=== PATIENT | male | born 1965 | race Caucasian/White ===

== ENCOUNTER 2017-08-01 17:01 | Emergency (ER) | payer OTHER ==
[2017-08-01] MEDS ORDERED: IBUPROFEN 600 MG TAB PO ONE (17:42)
[2017-08-01] MEDS ORDERED: ACETAMINOPHEN 500 MG TAB PO ONE (17:42)
[2017-08-01] MEDS ORDERED: DEXAMETHASONE 4 MG TAB PO ONE (18:25)
[2017-08-01] MEDS ORDERED: KETOROLAC 30 MG/1 ML SDV IM ONE (18:26)
--- NOTE | 2017-08-01 18:29 | EDPHY ---
H & P Stated Complaint: Body aches,sore throat,fever today;seen at ,neg strep Time Seen by Provider: 08/01/17 18:26 HPI/ROS: HPI: This is a 52-year-old male presents with Chief Complaint:Body aches,sore throat,fever today;seen at ,neg strep Location: Throat Quality: Sore Duration: Since this morning approximately 5-8 hours Signs and Symptoms:+ fever, + body aches, + dry cough, no wheezing, no abdominal pain, no chest pain, no headache, no neck stiffness, difficulty swallowing Timing: Sudden Severity: Moderate Context: Patient reports that he did not and received his influenza vaccine this year and woke up this morning with a severe sore throat that is constant and moderate in nature. He reports that it hurts to swallow but he has been able to drink fluids. He noted an elevated temperature around noon today. He went to the urgent care and they did a rapid strep and was negative prescribed oral viscous lidocaine and has given him no relief. tylenol/motrin taken @ 1745 Modifying Factors: See above Comment: ROS: see HPI Constitutional: No fever, no chills, no weight loss Eyes: No blurred vision Respiratory: No shortness of breath, no cough Cardiovascular: No chest pain Gastrointestinal: No nausea, no vomiting, no diarrhea Genitourinary: No dysuria Extremities: No myalgias Neurologic: No weakness, no numbness Skin: No rashes Hematologic: No bruising, no bleeding MEDICAL/SURGICAL/SOCIAL HISTORY: Medical history: Generally healthy. Does not take any regular medications. Surgical history: Denies Social history: Employed with [employer] CONSTITUTIONAL: awake and alert, no obvious distress HEENT: Atraumatic and normocephalic, PERRL, EOMI. Tympanic membranes clear. Oropharynx clear, tonsils 1+ mild erythema, uvula midline, no exudate and moist pink mucosa. Airway patent. Mild anterior cervical lymphadenopathy. No meningismus. Cardiovascular: Normal S1/S2, normal rate, regular rhythm, without murmur rub or gallop. PULMONARY/CHEST: Symmetrical and nontender. Clear to auscultation bilaterally. Good air movement. No accessory muscle usage. ABDOMEN: Soft, nondistended, nontender, no rebound, no guarding, no peritoneal signs, no masses or organomegaly. No CVAT. EXTREMITIES: 2/2 pulses, strength 5/5, no deformities, no clubbing, no cyanosis or edema. NEUROLOGICAL: no focal neuro deficits. GCS 15. SKIN: Warm and dry, no erythema. no rash. Good capillary refill. Source: Patient Exam Limitations: No limitations - Personal History Current Tetanus Diphtheria and Acellular Pertussis (TDAP): Unsure - Medical/Surgical History Hx Asthma: No Hx Chronic Respiratory Disease: No Hx Diabetes: No Hx Cardiac Disease: No Hx Renal Disease: No Other PMH: Denies pmh or psh - Social History Smoking Status: Never smoked Constitutional: Initial Vital Signs Temperature (C) 38.6 C H 08/01/17 17:06 Heart Rate 78 08/01/17 17:06 Respiratory Rate 18 08/01/17 17:06 Blood Pressure 112/72 08/01/17 17:06 O2 Sat (%) 97 08/01/17 17:06 O2 Delivery Mode Room Air Allergies/Adverse Reactions: No Known Allergies Allergy (Unverified 11/08/14 16:03) Home Medications: Medication Instructions Recorded NK [No Known Home Meds] 11/08/14 Medical Decision Making ED Course/Re-evaluation: Influenza test, IM, oral medications ordered No signs of airway compromise/tonsillar abscess/sepsis Given ibuprofen, IM Toradol, oral Decadron with moderate relief of discomfort Influenza a and B are negative suspect influenza like illness Advised supportive care Vital signs at discharge show a afebrile and no tachycardia. Differential Diagnosis: Differential diagnosis includes but is not limited to influenza, viral syndrome , viral pharyngitis. - Data Points Laboratory Results: 08/01/17 18:30 Nasal Influenza A PCR NEGATIVE FOR FLU A (NEGATIVE) Nasal Influenza B PCR NEGATIVE FOR FLU B (NEGATIVE) Medications Given: Discontinued Medications Acetaminophen (Tylenol) 1,000 mg PO EDNOW ONE Stop: 08/01/17 17:43 Last Admin: 08/01/17 17:48 Dose: 1,000 mg Dexamethasone (Decadron) 10 mg PO EDNOW ONE Stop: 08/01/17 18:26 Last Admin: 08/01/17 18:32 Dose: 10 mg Ibuprofen (Motrin) 600 mg PO EDNOW ONE Stop: 08/01/17 17:43 Last Admin: 08/01/17 17:51 Dose: 600 mg Ketorolac Tromethamine (Toradol) 30 mg IM EDNOW ONE Stop: 08/01/17 18:27 Last Admin: 08/01/17 18:33 Dose: 30 mg Departure - Departure Disposition: Home, Routine, Self-Care Clinical Impression: Influenza-like illness Condition: Good Instructions: Influenza (ED), Viral Syndrome (ED) Additional Instructions: Please rest as much as possible until you are feeling better. Drink plenty of fluids to prevent dehydration. Take Tylenol and/or ibuprofen as needed for fever, pain. Use [id number] throat sprays as needed for sore throat. Referrals: [facility],. [Clinic] - As per Instructions
[2017-08-01 19:52] VITALS: BP 124/76; PULSE 93; RESP 16; TEMP 99.5; O2SAT 94
== END 2017-08-01 19:55 | disposition home or self-care (01) ==
DX: J11.1 Influenza due to unidentified influenza virus with other respiratory manifestations (principal)
CPT/HCPCS: J1885